=== PATIENT | female | born 1990 ===

== ENCOUNTER 2017-11-26 17:19 | Emergency (ER) | payer MEDICAID, OTHER ==
[2017-11-26 17:33] VITALS: RESP 18; TEMP 99.1
--- NOTE | 2017-11-26 17:35 | ED PDOC ---
Arrival/HPI - General Chief Complaint: Headache Time Seen by Provider: 11/26/17 17:35 Historian: Patient - History of Present Illness Narrative History of Present Illness (Text): 11/26/17 17:35 27 y/o female, no significant pmh, nkda, c/o headache x 1 month with no fall or trauma. Aching throbbing headache, non-radiating, stated that she work alot and pain usually at the end of her working shift, no change in vision, no numbness or tingling, no rash, no chest pain or shortness of breath, no other medical or psychological complaints. Past Medical History - Provider Review Nursing Documentation Reviewed: Yes - Infectious Disease Hx of Infectious Diseases: None - Reproductive Menopause: No - Psychiatric Hx Substance Use: No - Anesthesia Hx Anesthesia: No Family/Social History - Physician Review Nursing Documentation Reviewed: Yes Family/Social History: Unknown Family HX Smoking Status: Unknown If Ever Smoked Hx Alcohol Use: No Hx Substance Use: No Allergies/Home Meds Allergies/Adverse Reactions: Allergies No Known Allergies Allergy (Verified 11/26/17 17:33) Review of Systems - Review of Systems Constitutional: absent: Fatigue, Fevers Eyes: absent: Vision Changes ENT: absent: Hearing Changes Respiratory: absent: SOB, Cough Cardiovascular: absent: Chest Pain Gastrointestinal: absent: Abdominal Pain, Nausea, Vomiting Musculoskeletal: absent: Arthralgias, Back Pain, Myalgias Skin: absent: Rash, Pruritis Neurological: Headache. absent: Dizziness, Focal Weakness Psychiatric: absent: Anxiety, Depression Physical Exam Vital Signs Temp Pulse Resp BP Pulse Ox 11/26/17 19:08 89 18 132/85 99 11/26/17 17:53 99.1 F 90 18 135/96 H 99 11/26/17 17:30 99.1 F 90 18 135/96 H 98 Temperature: Afebrile Blood Pressure: Hypertensive Pulse: Regular Respiratory Rate: Normal Appearance: Positive for: Well-Appearing, Non-Toxic Pain Distress: Moderate Mental Status: Positive for: Alert and Oriented X 3 - Systems Exam Head: Present: Atraumatic, Normocephalic, Other (+ttp on the posterior occipital muscle region. ). No: Tenderness, Contusion, Swelling, Ecchymosis, Abrasion, Laceration Pupils: Present: PERRL Extroacular Muscles: Present: EOMI Conjunctiva: Present: Normal Ears: Present: NORMAL TM, Normal Canal. No: Erythema Mouth: Present: Moist Mucous Membranes Neck: Present: Normal Range of Motion, Trachea Midline. No: Meningeal Signs, MIDLINE TENDERNESS, Paraspinal Tenderness, Lymphadenopathy, Bruit Respiratory/Chest: Present: Clear to Auscultation, Good Air Exchange. No: Respiratory Distress, Accessory Muscle Use Cardiovascular: Present: Regular Rate and Rhythm, Normal S1, S2. No: Murmurs Abdomen: Present: Normal Bowel Sounds. No: Tenderness, Distention, Peritoneal Signs, Rebound, Guarding Back: Present: Normal Inspection Upper Extremity: Present: Normal Inspection. No: Cyanosis, Edema Lower Extremity: Present: Normal Inspection. No: Edema Neurological: Present: GCS=15, CN II-XII Intact, Speech Normal, Motor Func Grossly Intact, Gait Normal, Memory Normal Skin: Present: Warm, Dry, Normal Color. No: Rashes Psychiatric: Present: Alert, Oriented x 3, Normal Insight, Normal Concentration Medical Decision Making ED Course and Treatment: 11/26/17 17:51 -labs/ua/rapid flu -CT head -IVF/reglan/toradol/valium -Observe and reassess 11/26/17 19:48 -Labs are non-significant -Rapid flu negative -UA show +UTI, macrobid ordered. -Urine hcg is negative -CT head show No acute intracranial hemorrhage or acute territorial type infarct. There is a small focus of hypodensity within the superior left frontal white matter, nonspecific in a patient this age. This can be further evaluated with a nonemergent MRI. I discussed with the patient and advised outpatient MRI and neurologist follow up. -Headache resolved, will discharge home. -Discharge home with macrobid, naproxen, bed, rest, follow up with your own pmd and neurologist within 2 days and outpatient MRI head, return to the ER for any new or worsening signs or symptoms. - Lab Interpretations Lab Results: 11/26/17 19:00 11/26/17 19:00 Lab Results 11/26/17 19:00: Sodium 142, Potassium 4.1, Chloride 103, Carbon Dioxide 28, Anion Gap 15, BUN 10, Creatinine 0.7, Est GFR ( Amer) > 60, Est GFR (Non- Af Amer) > 60, Random Glucose 90, Calcium 9.7, Total Bilirubin 0.4, AST 21, ALT 25, Alkaline Phosphatase 72, Total Protein 7.7, Albumin 4.3, Globulin 3.4, Albumin/Globulin Ratio 1.2 11/26/17 19:00: WBC 8.8, RBC 4.36, Hgb 13.8, Hct 42.2, MCV 96.8, MCH 31.7, MCHC 32.7, RDW 12.9, Plt Count 259, MPV 9.3, Gran % 63.7, Lymph % (Auto) 26.9, [place] % (Auto) 7.0 H, Eos % (Auto) 2.2, Baso % (Auto) 0.2, Gran # 5.58, Lymph # (Auto ) 2.4, [place] # (Auto) 0.6, Eos # (Auto) 0.2, Baso # (Auto) 0.02 11/26/17 19:00: Influenza Typ A,B (EIA) Negative for flu a/b 11/26/17 18:00: Urine Color Yellow, Urine Appearance Sl cloudy, Urine pH 6.0, Ur Specific [place] >= 1.030, Urine Protein Negative, Urine Glucose (UA) Negative, Urine Ketones Trace H, Urine Blood Small H, Urine Nitrate Negative, Urine Bilirubin Negative, Urine Urobilinogen 0.2, Ur Leukocyte Esterase Small H , Urine RBC 1 - 3, Urine WBC 5 - 10, Ur Epithelial Cells 4 - 5, Urine Bacteria Few - RAD Interpretation Radiology Orders: 11/26/17 17:47 HEAD W/O CONTRAST [CT] Stat COMPARISON: No relevant prior studies available. FINDINGS: Artifacts: Mild artifact is visualized within the occipital lobes. Brain: There is a small focus of hypodensity on series 4 image 42 within the superior left frontal white matter, nonspecific in a patient this age. The white-vaughan differentiation is preserved demonstrating no acute territorial type infarct. No acute intracranial hemorrhage is seen. There are calcifications within the globus pallidus bilaterally, which are likely physiologic. Midline shift: There is no midline shift. Ventricles: No ventriculomegaly. Bones/joints: The calvarium demonstrates no evidence for a depressed fracture. Soft tissues: No acute abnormality. Sinuses: Unremarkable as visualized. No acute sinusitis. Mastoid air cells: No mastoid effusion. IMPRESSION: 1. No acute intracranial hemorrhage or acute territorial type infarct. 2. There is a small focus of hypodensity within the superior left frontal white matter, nonspecific in a patient this age. This can be further evaluated with a nonemergent MRI. Thank you for allowing us to participate in the care of your patient. Dictated and Authenticated by: Alexander Fraser MD 11/26/2017 7:43 PM Eastern Time ([place] & [place]) [facility] Specialist: Radiologist - Medication Orders Current Medication Orders: Discontinued Medications Diazepam (Valium) 5 mg PO ONCE ONE PRN Reason: Protocol Stop: 11/26/17 17:48 Last Admin: 11/26/17 19:08 Dose: 5 mg Ketorolac Tromethamine (Toradol) 30 mg IVP STAT STA Stop: 11/26/17 17:48 Last Admin: 11/26/17 19:08 Dose: 30 mg MAR Pain Assessment Document 11/26/17 19:08 SF (Rec: 11/26/17 19:18 SF [facility] [id number]) Pain Reassessment Is this a pain reassessment? Yes Sleep Is patient sleeping during reassessment? No Presence of Pain Presence of Pain Yes IVP Administration Document 11/26/17 19:08 SF (Rec: 11/26/17 19:18 SF [facility] [id number]) Charges for Administration # of IVP Administrations 1 Metoclopramide HCl (Reglan) 10 mg IVP STAT STA Stop: 11/26/17 17:48 Last Admin: 11/26/17 19:08 Dose: 10 mg IVP Administration Document 11/26/17 19:08 SF (Rec: 11/26/17 19:18 SF [facility] [id number]) Charges for Administration # of IVP Administrations 1 Nitrofurantoin Macrocrystals (Macrobid) 100 mg PO STAT STA Stop: 11/26/17 19:43 - PA / LIQUOR CLERK / Resident Statement MD/DO has reviewed & agrees with the documentation as recorded. Disposition/Present on Arrival - Present on Arrival Any Indicators Present on Arrival: No History of DVT/PE: No History of Uncontrolled Diabetes: No Urinary Catheter: No History of Decub. Ulcer: No History Surgical Site Infection Following: None - Disposition Have Diagnosis and Disposition been Completed?: Yes Diagnosis: Headache, Abnormal CT scan, head, UTI (urinary tract infection) Disposition: HOME/ ROUTINE Disposition Time: 17:52 Patient Plan: Discharge Patient Problems: Current Active Problems Problem Status Onset Headache Acute Condition: IMPROVED Additional Instructions: -Discharge home with macrobid, naproxen, bed, rest, follow up with your own pmd and neurologist within 2 days and outpatient MRI head, return to the ER for any new or worsening signs or symptoms. Prescriptions: Naproxen 500 mg PO BID PRN #20 tab PRN Reason: Other Nitrofurantoin Macrocrystals [Macrobid] 100 mg PO BID #14 cap Referrals: Kateryna Burgos [Primary Care Provider] - Follow up with primary Deanne Ricketts MD [Staff Provider] - Follow up with primary Forms: WORK NOTE
[2017-11-26 17:59] VITALS: O2SAT 99
[2017-11-26 18:18] LABS: URINE BILIRUBIN NEGATIVE (NEGATIVE); URINE BLOOD SMALL (NEGATIVE); URINE GLUCOSE (UA) NEGATIVE (NEGATIVE); URINE LEUKOCYTE ESTERASE SMALL Leu/uL (NEGATIVE); URINE NITRATE NEGATIVE (NEGATIVE); URINE PROTEIN NEGATIVE mg/dL (<30 mg/dL); URINE UROBILINOGEN 0.2 E.U./dL (<1 E.U./dL)
[2017-11-26 18:19] LABS: URINE APPEARANCE SL CLOUDY (CLEAR); URINE COLOR YELLOW (YELLOW)
[2017-11-26 18:35] LABS: URINE BACTERIA FEW (NEG)
[2017-11-26 19:32] LABS: BASO # 0.02 K/mm3 (0.0-2.0); BASO % 0.2 % (0.0-3.0); EOS # 0.2 (0.0-0.7); EOS % 2.2 % (1.5-5.0); GRAN # 5.58 (1.4-6.5); GRAN % 63.7 % (50.0-68.0); HEMOGLOBIN 13.8 g/dL (12.0-16.0); LYMPH # 2.4 (1.2-3.4); LYMPH % 26.9 % (22.0-35.0); MEAN CELL VOLUME 96.8 fl (80.0-105.0); MEAN CORPUSCULAR HEMOGLOBIN 31.7 pg (25.0-35.0); MEAN CORPUSCULAR HGB CONC 32.7 g/dl (31.0-37.0); MEAN PLATELET VOLUME 9.3 fl (7.0-11.0); MONO # 0.6 (0.1-0.6); RBC 4.36 10^6/uL (3.5-6.1); RED CELL DISTRIBUTION WIDTH 12.9 % (11.5-14.5); WHITE BLOOD COUNT 8.8 10^3/ul (4.5-11.0)
[2017-11-26 19:34] LABS: ALB/GLOB RATIO 1.2 (1.1-1.8); ALBUMIN 4.3 g/dL (3.0-4.8); ALT/SGPT 25 U/L (7-56); AST/SGOT 21 U/L (14-36); BLOOD UREA NITROGEN 10 mg/dL (7-21); CALCIUM 9.7 mg/dL (8.4-10.5); GFR AFRICAN-AMERICAN > 60; GFR NON-AFRICAN AMERICAN > 60
--- NOTE | 2017-11-26 19:44 | CT ---
EXAM: CT Head Without Intravenous Contrast EXAM DATE/TIME: 11/26/2017 5:47 PM CLINICAL HISTORY: The patient age is 27 years old and is female; Pain; Headache; Headache not specified; Additional info: Headache x 1 month Facility exam id and description: Ct heads head w/o contrast TECHNIQUE: Axial computed tomography images of the head/brain without intravenous contrast. All CT scans at this facility use one or more dose reduction techniques, viz.: automated exposure control; ma/kV adjustment per patient size (including targeted exams where dose is matched to indication; i.e. head); or iterative reconstruction technique. Coronal and sagittal reformatted images were created and reviewed. COMPARISON: No relevant prior studies available. FINDINGS: Artifacts: Mild artifact is visualized within the occipital lobes. Brain: There is a small focus of hypodensity on series 4 image 42 within the superior left frontal white matter, nonspecific in a patient this age. The white-vaughan differentiation is preserved demonstrating no acute territorial type infarct. No acute intracranial hemorrhage is seen. There are calcifications within the globus pallidus bilaterally, which are likely physiologic. Midline shift: There is no midline shift. Ventricles: No ventriculomegaly. Bones/joints: The calvarium demonstrates no evidence for a depressed fracture. Soft tissues: No acute abnormality. Sinuses: Unremarkable as visualized. No acute sinusitis. Mastoid air cells: No mastoid effusion. IMPRESSION: 1. No acute intracranial hemorrhage or acute territorial type infarct. 2. There is a small focus of hypodensity within the superior left frontal white matter, nonspecific in a patient this age. This can be further evaluated with a nonemergent MRI.
[2017-11-26 20:07] VITALS: BP 127/80; PULSE 85
== END 2017-11-26 20:15 | disposition home or self-care (01) ==
LOC: ED 17:19
DX: N39.0 Urinary tract infection, site not specified (principal); R51 Headache; R94.8 Abnormal results of function studies of other organs and systems
CPT/HCPCS: 70450; 80053; 81001; 85025; 87086; 87804; 96374; 96375; 99285; J1885; J2765

== ENCOUNTER 2018-04-24 20:17 | Emergency (ER) | payer MEDICAID, OTHER ==
--- NOTE | 2018-04-24 20:29 | ED PDOC ---
Arrival/HPI - General Time Seen by Provider: 04/24/18 20:26 Historian: Patient - History of Present Illness Narrative History of Present Illness (Text): 04/24/18 20:29 27 year old female, no significant pmh, nkda, complaining of nausea/vomiting/ diarrhea/abdominal pain x 1 day. Pt. stated that she started to couple episodes of nausea/vomiting/diarrhea yesterday, no fever or chills, epigastric pain, no flank pain, no night sweat, no dizziness, no change in vision, no numbness or tingling, no palpitation, no other medical or psychological complaint. Past Medical History - Provider Review Nursing Documentation Reviewed: Yes - Infectious Disease Hx of Infectious Diseases: None - Psychiatric Hx Substance Use: No - Anesthesia Hx Anesthesia: No Family/Social History - Physician Review Nursing Documentation Reviewed: Yes Family/Social History: Unknown Family HX Smoking Status: Unknown If Ever Smoked Hx Alcohol Use: No Hx Substance Use: No Allergies/Home Meds Allergies/Adverse Reactions: Allergies No Known Allergies Allergy (Verified 04/24/18 20:25) Review of Systems - Review of Systems Constitutional: absent: Fatigue, Fevers Eyes: absent: Vision Changes ENT: absent: Hearing Changes Respiratory: absent: SOB, Cough Cardiovascular: absent: Chest Pain Gastrointestinal: Abdominal Pain, Diarrhea, Nausea, Vomiting Musculoskeletal: absent: Arthralgias, Back Pain Skin: absent: Rash, Pruritis Neurological: absent: Headache Psychiatric: absent: Anxiety, Depression, Suicidal Ideation Physical Exam Vital Signs Reviewed: Yes Vital Signs Temp Pulse Resp BP Pulse Ox 04/24/18 20:25 98.8 F 70 16 105/70 99 Temperature: Afebrile Blood Pressure: Normal Pulse: Regular Respiratory Rate: Normal Appearance: Positive for: Well-Appearing, Non-Toxic, Comfortable Pain Distress: Mild Mental Status: Positive for: Alert and Oriented X 3 - Systems Exam Head: Present: Atraumatic, Normocephalic Pupils: Present: PERRL Extroacular Muscles: Present: EOMI Conjunctiva: Present: Normal Mouth: Present: Moist Mucous Membranes Neck: Present: Normal Range of Motion Respiratory/Chest: Present: Clear to Auscultation, Good Air Exchange. No: Respiratory Distress, Accessory Muscle Use Cardiovascular: Present: Regular Rate and Rhythm, Normal S1, S2. No: Murmurs Abdomen: Present: Tenderness (+epigastric), Other (negative mcburney and negative lagnley signs. ). No: Distention, Peritoneal Signs, Rebound, Guarding Back: Present: Normal Inspection. No: CVA Tenderness Upper Extremity: Present: Normal Inspection. No: Cyanosis, Edema Lower Extremity: Present: Normal Inspection. No: Edema Neurological: Present: GCS=15, CN II-XII Intact, Speech Normal Skin: Present: Warm, Dry, Normal Color. No: Rashes Psychiatric: Present: Alert, Oriented x 3, Normal Insight, Normal Concentration Medical Decision Making ED Course and Treatment: 04/24/18 20:42 Differential: Gastroenteritis vs. gastritis vs. pancreatitis vs. UTI -Labs/ua -IVF/pepcid/zofran -Observe and reassess 04/24/18 21:47 -Urine hcg is negative -Labs are non-significant -Urinalysis show no UTI -Pt. feels much better, asymptomatic, labs discussed with the patient including differential, request to be discharged home. -Discharge home with pepcid, zofran prn, BRAT diet, avoid dairy diet, follow up with your own pmd and GI within 2 days, return to the ER for any new or worsening signs or symptoms. - Lab Interpretations Lab Results: 04/24/18 20:50 04/24/18 20:50 Lab Results 04/24/18 21:30: Urine Color Yellow, Urine Appearance Clear, Urine pH 6.0, Ur Specific [place] >= 1.030, Urine Protein Negative, Urine Glucose (UA) Negative, Urine Ketones Trace H, Urine Blood Small H, Urine Nitrate Negative, Urine Bilirubin Negative, Urine Urobilinogen 0.2, Ur Leukocyte Esterase Negative, Urine RBC Pending, Urine WBC Pending 04/24/18 20:50: WBC 7.5, RBC 3.81, Hgb 12.1, Hct 35.6 L, MCV 93.4 D, MCH 31.8, MCHC 34.0, RDW 12.7, Plt Count 236, MPV 9.0, Gran % 57.1, Lymph % (Auto) 32.4, [place] % (Auto) 6.9 H, Eos % (Auto) 3.3, Baso % (Auto) 0.3, Gran # 4.29, Lymph # ( Auto) 2.4, [place] # (Auto) 0.5, Eos # (Auto) 0.3, Baso # (Auto) 0.02 04/24/18 20:50: Sodium 142, Potassium 3.8, Chloride 105, Carbon Dioxide 27, Anion Gap 14, BUN 10, Creatinine 0.6 L, Est GFR ( Amer) > 60, Est GFR ( Non-Af Amer) > 60, Random Glucose 103, Calcium 8.8, Magnesium 1.9, Total Bilirubin 0.3, AST 26, ALT 18, Alkaline Phosphatase 57, Total Protein 6.9, Albumin 4.0, Globulin 3.0, Albumin/Globulin Ratio 1.3, Lipase 69 I have reviewed the lab results: Yes - RAD Interpretation [employer] Supervisor: Radiologist - Medication Orders Current Medication Orders: Discontinued Medications Famotidine (Pepcid) 20 mg IVP STAT STA Stop: 04/24/18 20:40 Last Admin: 04/24/18 21:11 Dose: 20 mg IVP Administration Document 04/24/18 21:11 IT (Rec: 04/24/18 21:11 IT [id number]) Charges for Administration # of IVP Administrations 1 Sodium Chloride (Sodium Chloride 0.9%) 1,000 mls @ 999 mls/hr IV .Q1H1M STA Stop: 04/24/18 21:39 Last Admin: 04/24/18 21:11 Dose: 999 mls/hr eMAR Start Stop Document 04/24/18 21:11 IT (Rec: 04/24/18 21:11 IT [id number]) Intravenous Solution Start Date 04/24/18 Start Time 21:11 Ondansetron HCl (Zofran Inj) 4 mg IVP STAT STA Stop: 04/24/18 20:40 Last Admin: 04/24/18 21:11 Dose: 4 mg IVP Administration Document 04/24/18 21:11 IT (Rec: 04/24/18 21:11 IT [id number]) Charges for Administration # of IVP Administrations 1 - PA / CLINICAL INVESTIGATOR / Resident Statement /DO has reviewed & agrees with the documentation as recorded. Disposition/Present on Arrival - Present on Arrival Any Indicators Present on Arrival: No History of DVT/PE: No History of Uncontrolled Diabetes: No Urinary Catheter: No History of Decub. Ulcer: No History Surgical Site Infection Following: None - Disposition Have Diagnosis and Disposition been Completed?: Yes Diagnosis: Gastroenteritis Disposition: HOME/ ROUTINE Disposition Time: 20:42 Patient Plan: Discharge Condition: IMPROVED Additional Instructions: -Discharge home with pepcid, zofran prn, BRAT diet, avoid dairy diet, follow up with your own pmd and GI within 2 days, return to the ER for any new or worsening signs or symptoms. Prescriptions: Famotidine [Pepcid] 20 mg PO BID #14 tab Ondansetron [Zofran] 4 mg PO Q8H PRN #10 tab PRN Reason: Nausea/Vomiting Referrals: Jones Chapa MD [Primary Care Provider] - Follow up with primary Jeb Dill MD [Medical Doctor] - Follow up with primary Forms: WORK NOTE
[2018-04-24] MEDS ORDERED: Sodium Chloride 0.9% 1,000 ML IV STA (20:39)
[2018-04-24 21:01] LABS: BASO # 0.02 K/mm3 (0.0-2.0); BASO % 0.3 % (0.0-3.0); EOS # 0.3 (0.0-0.7); EOS % 3.3 % (1.5-5.0); GRAN # 4.29 (1.4-6.5); GRAN % 57.1 % (50.0-68.0); HEMOGLOBIN 12.1 g/dL (12.0-16.0); LYMPH # 2.4 (1.2-3.4); LYMPH % 32.4 % (22.0-35.0); MEAN CELL VOLUME 93.4 fl (80.0-105.0); MEAN CORPUSCULAR HEMOGLOBIN 31.8 pg (25.0-35.0); MONO # 0.5 (0.1-0.6); MONO % 6.9 % (1.0-6.0); RBC 3.81 10^6/uL (3.5-6.1); RED CELL DISTRIBUTION WIDTH 12.7 % (11.5-14.5); WHITE BLOOD COUNT 7.5 10^3/ul (4.5-11.0)
[2018-04-24 21:12] LABS: ALB/GLOB RATIO 1.3 (1.1-1.8); ALT/SGPT 18 U/L (7-56); AST/SGOT 26 U/L (14-36); BLOOD UREA NITROGEN 10 mg/dL (7-21); CALCIUM 8.8 mg/dL (8.4-10.5); GFR AFRICAN-AMERICAN > 60; GFR NON-AFRICAN AMERICAN > 60; LIPASE 69 U/L (23-300)
[2018-04-24 21:42] LABS: URINE BILIRUBIN NEGATIVE (NEGATIVE); URINE BLOOD SMALL (NEGATIVE); URINE GLUCOSE (UA) NEGATIVE (NEGATIVE); URINE LEUKOCYTE ESTERASE NEGATIVE Leu/uL (NEGATIVE); URINE PROTEIN NEGATIVE mg/dL (<30 mg/dL); URINE UROBILINOGEN 0.2 E.U./dL (<1 E.U./dL)
[2018-04-24 21:46] LABS: URINE APPEARANCE CLEAR (CLEAR); URINE COLOR YELLOW (YELLOW)
[2018-04-24 21:51] LABS: URINE BACTERIA MOD (NEG); URINE WBC 0 - 2 /hpf (0-6)
[2018-04-24 22:03] VITALS: BP 122/84; PULSE 65; RESP 17; TEMP 98.2; O2SAT 98
== END 2018-04-24 22:03 | disposition home or self-care (01) ==
LOC: ED 20:17
DX: K52.9 Noninfective gastroenteritis and colitis, unspecified (principal)
CPT/HCPCS: 80053; 81001; 83690; 83735; 85025; 96374; 96375; 99284; J2405; J7030

== ENCOUNTER 2018-05-15 18:07 | Emergency (ER) | payer MEDICAID ==
[2018-05-15 18:50] VITALS: BMI 32.4
[2018-05-15 18:52] VITALS: RESP 18; TEMP 98.7
--- NOTE | 2018-05-15 19:25 | ED PDOC ---
Arrival/HPI - General Chief Complaint: Back Pain Time Seen by Provider: 05/15/18 18:24 Historian: Patient, Other (Boyfriend) - History of Present Illness Time/Duration: Other (2 days) Symptom Onset: Gradual Symptom Course: Worsening Quality: Aching Severity Level: Moderate Associated Symptoms (Text): 05/15/18 19:23 Patient reports doing heavy lifting at work and developing upper back lower neck pain. She states it is worse with certain movements and also with deep breathing. No numbness tingling or paresthesias. No genitourinary symptoms. No abdominal pain nausea or vomiting. She does not appear ill. She states she took some Tylenol this morning and the pain improved, but it returned when the Tylenol wore off. She needs a note for work. Past Medical History - Infectious Disease Hx of Infectious Diseases: None - Cardiac Hx Cardiac Disorders: No - Pulmonary Hx Respiratory Disorders: Yes Hx Asthma: Yes - Neurological Hx Neurological Disorder: No - HEENT Hx HEENT Disorder: No - Renal Hx Renal Disorder: No - Endocrine/Metabolic Hx Endocrine Disorders: No - Hematological/Oncological Hx Blood Disorders: No - Integumentary Hx Dermatological Disorder: No - Musculoskeletal/Rheumatological Hx Musculoskeletal Disorders: No - Gastrointestinal Hx Gastrointestinal Disorders: No - Genitourinary/Gynecological Hx Genitourinary Disorders: No - Psychiatric Hx Psychophysiologic Disorder: No Hx Substance Use: No - Anesthesia Hx Anesthesia: No Family/Social History - Physician Review Nursing Documentation Reviewed: Yes Family/Social History: Unknown Family HX Smoking Status: Never Smoked Hx Alcohol Use: No Hx Substance Use: No Allergies/Home Meds Allergies/Adverse Reactions: Allergies No Known Allergies Allergy (Verified 05/15/18 18:50) Review of Systems - Physician Review All systems were reviewed & negative as marked: Yes - Review of Systems Constitutional: Normal Respiratory: Normal Cardiovascular: Normal Gastrointestinal: Normal Genitourinary Female: Normal Musculoskeletal: Back Pain, Neck Pain Neurological: Normal. absent: Headache, Dizziness, Focal Weakness, Gait Changes , Speech Changes, Facial Droop, Disequilibrium, Seizure Physical Exam Vital Signs Temp Pulse Resp BP Pulse Ox 05/15/18 20:17 98.7 F 70 18 130/79 98 05/15/18 18:50 98.7 F 75 18 123/87 97 Temperature: Afebrile Blood Pressure: Normal Pulse: Regular Respiratory Rate: Normal Appearance: Positive for: Well-Appearing, Non-Toxic, Uncomfortable Pain Distress: Mild Mental Status: Positive for: Alert and Oriented X 3 - Systems Exam Head: Present: Atraumatic, Normocephalic Neck: Present: Normal Range of Motion, Paraspinal Tenderness (Bilateral mild paraspinous tenderness). No: Meningeal Signs, MIDLINE TENDERNESS Respiratory/Chest: Present: Clear to Auscultation, Good Air Exchange. No: Respiratory Distress, Accessory Muscle Use Cardiovascular: Present: Regular Rate and Rhythm, Normal S1, S2. No: Murmurs Back: Present: Normal Inspection, Paraspinal Tenderness (Bilateral upper thoracic paraspinous tenderness. No low back pain.). No: CVA Tenderness, Midline Tenderness Upper Extremity: Present: Normal Inspection. No: Cyanosis, Edema Lower Extremity: Present: Normal Inspection. No: Edema Neurological: Present: GCS=15, CN II-XII Intact, Speech Normal, Motor Func Grossly Intact, Normal Sensory Function, Normal Cerebellar Funct, Gait Normal Skin: Present: Warm, Dry, Normal Color. No: Rashes Medical Decision Making ED Course and Treatment: 05/15/18 20:10 Patient appears to have a mechanical muscular strain of her upper back and trapezius. Conservative treatment with anti-inflammatories and rest. Follow-up with PMD. Follow-up in the ER as needed. - RAD Interpretation Radiology Orders: 05/15/18 19:27 CHEST TWO VIEWS (PA/LAT) [RAD] Stat Chest 2 views shows no infiltrate or effusion cardiomegaly or pneumothorax. Crater And Packer: ED Physician - Medication Orders Current Medication Orders: Discontinued Medications Acetaminophen (Tylenol 325mg Tab) 975 mg PO STAT STA Stop: 05/15/18 19:28 Last Admin: 05/15/18 19:44 Dose: 975 mg MAR Pain/Vitals Document 05/15/18 19:44 OCS (Rec: 05/15/18 19:44 OCS [facility] [place]) Pain Reassessment Is This A Pain ReAssessment? No Sleep Is patient sleeping during reassessment? Yes Pain Scale Used Pain Scale Used Numeric Location Pain Location Body Site Back Description Constant Aggravating Factors ADL's Disposition/Present on Arrival - Present on Arrival Any Indicators Present on Arrival: No History of DVT/PE: No History of Uncontrolled Diabetes: No Urinary Catheter: No History of Decub. Ulcer: No History Surgical Site Infection Following: None - Disposition Have Diagnosis and Disposition been Completed?: Yes Diagnosis: Muscle strain Disposition: HOME/ ROUTINE Disposition Time: 20:11 Patient Plan: Discharge Condition: GOOD Discharge Instructions (ExitCare): Muscle Strain (DC) Additional Instructions: Rest and ice. Follow-up with PMD. Follow-up in the ER as needed. Prescriptions: Naproxen [Naprosyn] 500 mg PO BID #14 tab Referrals: Jones Chapa MD [Primary Care Provider] - Follow up with primary Forms: [employer] ([place]), WORK NOTE
[2018-05-15 21:20] VITALS: BP 130/79; PULSE 70; O2SAT 98
--- NOTE | 2018-05-16 09:11 | RAD ---
Date of service: 05/15/2018 HISTORY: Left-sided rib and back pain COMPARISON: No prior. TECHNIQUE: Chest PA and lateral FINDINGS: LUNGS: No active pulmonary disease. PLEURA: No significant pleural effusion identified. No pneumothorax apparent. CARDIOVASCULAR: Normal. OSSEOUS STRUCTURES: No significant abnormalities. VISUALIZED UPPER ABDOMEN: Normal. OTHER FINDINGS: None. IMPRESSION: No active disease.
== END 2018-05-15 20:17 | disposition home or self-care (01) ==
LOC: ED 18:07
DX: S16.1XXA Strain of muscle, fascia and tendon at neck level, initial encounter (principal); S29.012A Strain of muscle and tendon of back wall of thorax, initial encounter; X50.0XXA Overexertion from strenuous movement or load, initial encounter; Y92.89 Other specified places as the place of occurrence of the external cause; Y99.8 Other external cause status